=== PATIENT | male | born 1995 | race Hispanic/Latino ===

== ENCOUNTER 2017-11-19 18:09 | Emergency (ER) | payer SELFPAY ==
[2017-11-19] MEDS ORDERED: MORPHINE 4 MG/ML SYR ONE (19:04)
[2017-11-19] MEDS ORDERED: ONDANSETRON 4 MG/2 ML VIAL ONE (19:04)
[2017-11-19] MEDS ORDERED: TETANUS & DIPHTHERIA TOX,ADULT 0.5 ML VIAL ONE (19:26)
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
== END 2017-11-19 21:00 | disposition short-term general hospital (02) ==
LOC: ER 18:09
DX: T23.261A Burn of second degree of back of right hand, initial encounter (principal); T31.0 Burns involving less than 10% of body surface; X10.2XXA Contact with fats and cooking oils, initial encounter; Y93.89 Activity, other specified; Y92.89 Other specified places as the place of occurrence of the external cause; Z23 Encounter for immunization
CPT/HCPCS: 90714; 96374; 96375; 99283; J2405